=== PATIENT | male | born 1990 | race Caucasian/White ===

== ENCOUNTER 2019-05-16 12:13 | Emergency (ER) | payer OTHER, SELFPAY ==
[2019-05-16 12:14] VITALS: BP 187/111; PULSE 94; RESP 17; TEMP 36.4; O2SAT 95; BMI 32.5
--- NOTE | 2019-05-16 12:46 | RAD_ITS ---
STUDY: X-RAY - LEFT ANKLE REASON FOR EXAM: Male, 28 years old. jumped up and landed wrong on ankle -- lateral swelling, pain TECHNIQUE: 3 view(s) of the ankle. COMPARISON: None. FINDINGS: Normal visualized distal tibia and fibula. There is a transverse fracture of the lateral malleolus below the tibiotalar joint without substantial displacement. There is overlying soft tissue swelling. Normal tibiotalar articulation and ankle mortise. Normal visualized talus and calcaneus. The visualized subtalar, talonavicular, calcaneocuboid and tarsal articulations are normal. The soft tissue structures are overlying unremarkable. RAD/Ankle min 3 Views IMPRESSION: Oneal A lateral malleolus fracture. Soft tissue swelling. Electronically Signed: Derrek Senior MD ([place]) at 13:26 EST , Service support ,
--- NOTE | 2019-05-16 12:47 | ED.VIS.GEN ---
History of Present Illness Chief Complaint: Lower Extremity Injury Detail of Chief Complaint: Left ankle injury Informant: Patient Onset: Today Context: Sudden Onset Current Severity: Mild Maximum Severity: Moderate Narrative: Patient presents for evaluation of left ankle injury. Patient states he was doing some jumping jacks this morning and rolled his left ankle. He felt a pop. He does have edema. He was able to ambulate on it to get here, but states ambulation is difficult. He denies any other injury. Past Medical History - Allergies and Home Meds Allergies/Adverse Reactions: Allergies No Known Allergies Allergy (Verified 05/16/19 12:13) Primary Care Physician: NOT,DEFINED [NON-STAFF] - Past Medical History: None Smoking Status: Current every day smoker Review of Systems General: Denies: Chills, Fever Eyes: Denies: Visual changes - bilaterally ENT: Denies: Bilateral ear pain Cardiovascular: Denies: Chest pain Respiratory: Denies: Dyspnea Gastrointestinal: Denies: Abdominal pain, Nausea, Vomiting Musculoskeletal: Reports: Arthralgias, Swelling, Extremity Pain Skin: Denies: Wounds Neurological: Denies: Headache, Weakness, Parasthesia Hematologic: Denies: Easy bruising Allergy: Denies: Uticaria Physical Exam Vital Signs/Narrative: Vital Signs Temp Pulse Resp BP Pulse Ox 05/16/19 12:14 97.5 F L 94 17 187/111 H 95 Inital Vital Signs reviewed: Yes General: Well nourished, Well developed Head: Normocephalic ENT: Moist mucous membranes Neck: Supple Cardiovascular: Regular rate, Regular rhythm Respiratory: No distress, CTA bilaterally Abdomen: Soft, Nontender Extremities: - - Tenderness outpatient and edema noted over the lateral malleolus of the left ankle. Mild edema noted over the proximal foot. No tenderness at the proximal fifth metatarsal. No tenderness at the knee. Strong distal pulses and normal sensation are noted. Skin: Normal color Neurological: Alert, Oriented x3 Psychological: Normal affect Diagnostic/Tx/Re-eval Impressions Ankle X-Ray 05/16/19 12:46 IMPRESSION: Oneal A lateral malleolus fracture. Soft tissue swelling. Electronically Signed: Derrek Senior MD ([place]) at 13:26 EST , Service support , 05/16/19 12:46 Ankle min 3 Views [RAD] Stat - Medical Decision Making Patient declined anything for pain while here. X-rays are reviewed with patient. He is placed in a walking boot. He declines crutches. Will be referred to orthopedics for follow-up. ED Disposition - Plan for ED Patient: Disposition: Home or Assisted Living Diagnosis: Ankle fracture Instructions: ANKLE FRACTURE (Distal Fibula), closed Referrals: Avi Javier DO [STAFF PHYSICIAN] - 1 Week
[2019-05-16 13:57] VITALS: BP 161/114; PULSE 74; RESP 18; O2SAT 97
== END 2019-05-16 13:58 | disposition home or self-care (01) ==
PROVIDERS: Emergency Provider Emergency Medicine
DX: S82.62XA Displaced fracture of lateral malleolus of left fibula, initial encounter for closed fracture (principal); Y93.A2 Activity, calisthenics; Y92.9 Unspecified place or not applicable; Y99.9 Unspecified external cause status; F17.200 Nicotine dependence, unspecified, uncomplicated
CPT/HCPCS: 73610; 99283

== ENCOUNTER 2020-08-25 11:25 | Outpatient (RCR) | payer BC, SELFPAY | END 2020-10-18 23:59 | LOC: IMMUN 11:25 | PROVIDERS: Referring Provider Family Medicine; Visit Provider Family Medicine | DX: Z23 Encounter for immunization (principal) | CPT/HCPCS: 0001A; 0002A; 91300 ==